=== PATIENT | female | born 1945 | race Caucasian/White ===

== ENCOUNTER 2017-12-05 05:31 | Inpatient (IN) | payer OTHER ==
[2017-11-23 13:41] LABS: HEMATOCRIT 41.4 % (37.0-47.0); MCH 28.7 pg (26.0-34.0); MCHC 33.7 g/dL (28.0-37.0); RBC 4.88 mil/uL (4.20-5.00); RDW 14.6 % (10.5-14.5); WBC 5.1 thou/uL (4.0-11.0)
[2017-11-23 13:42] LABS: URINE BILIRUBIN NEGATIVE (Negative); URINE BLOOD NEGATIVE (Negative); URINE CLARITY CLEAR; URINE COLOR YELLOW; URINE GLUCOSE-RANDOM* NEGATIVE (Negative); URINE KETONES NEGATIVE (Negative); URINE LEUKOCYTES-REFLEX NEGATIVE (Negative); URINE NITRITE-REFLEX NEGATIVE (Negative); URINE PROTEIN (DIPSTICK) NEGATIVE (Negative)
[2017-11-23 13:48] LABS: ALBUMIN 3.8 g/dL (3.4-5.0); CREATININE 0.7 mg/dL (0.6-1.0); POTASSIUM 3.5 mmol/L (3.5-5.1)
[2017-11-23 13:53] LABS: PROTIME 9.6 Seconds (9.3-11.4)
[~2017-12-05] VITALS: Ht 160 cm; Wt 76.7 kg
[2017-12-05] VITALS (7 sets, daily range): BP systolic 96–144; BP diastolic 62–95
--- NOTE | ~2017-12-05 | O ---
[facility] [place] [address] OPERATIVE REPORT Name: SACHA PAVON Room #: 450-P [facility] IN M.R.#: [id number] Admission: 12/05/17 Attend Phys: George Bills MD Discharge: 12/06/17 Date of : 47 Report #: [id number] THIS REPORT FOR: //name// CC: KARELY CHOI Physician staff George Bills DATE OF SERVICE: 12/05/2017 PREOPERATIVE DIAGNOSIS: Left knee osteoarthritis. POSTOPERATIVE DIAGNOSIS: Left knee osteoarthritis. PROCEDURE: Left total knee arthroplasty with Navio assistance. SURGEON: George Bills MD LIBRARY CIRCULATION ASSISTANT: Vianca Padron PA-C. INDICATIONS FOR ASSISTANCE: Throughout the case, extensive retraction and manipulation of the knee was required. This was afforded to me by my medical lab assistant. ANESTHESIA: LMA with an adductor canal block. IMPLANTS: Nicolas and Nephew size 5 narrow cobalt chrome Legion posterior stabilized femur, a size 3 tibia, a size 9 polyethylene and a size 32 patella. TOURNIQUET TIME: 59 minutes. ESTIMATED BLOOD LOSS: 25 mL. COMPLICATIONS: None. SPECIMENS: None. CONDITION UPON LEAVING THE OPERATING ROOM: Stable. INDICATION FOR PROCEDURE: The patient is a 71-year-old female with left knee osteoarthritis. She had failed conservative measures for this and after discussion with her, she elected for left total knee arthroplasty. DESCRIPTION OF PROCEDURE: Risks, benefits, alternatives, complications were discussed in detail with the patient including but not limited to risk of anesthesia, risk of damage to nerves, arteries and blood vessels, risk for infection and bleeding, risk for continued knee pain, need for reoperation. Informed consent was obtained from the patient. The left knee was appropriately [address] [address] OPERATIVE REPORT Name: SACHA PAVON Room #: 450-P DIS IN M.R.#: [id number] Admission: 12/05/17 Attend Phys: George Bills MD Discharge: 12/06/17 Date of : 47 Report #: [id number] marked in the preoperative holding area. IV Ancef was given for preoperative antibiotics. She was brought to the operating room and placed in the supine position on operating room table. LMA anesthesia was induced without complication. Tourniquet was placed on the left thigh. Left lower extremity was prepped and draped in normal sterile fashion. Timeout was performed properly identifying the patient and procedure as well as the instrumentation and implants. All in the operating room were in agreement. Left lower extremity was exsanguinated, tourniquet was inflated. Tourniquet time was 59 minutes. Standard midline approach to the knee was made with a 10 blade through the skin. Dissection was taken down sharply to the fascia and deep flaps were developed medially and laterally. Fresh 10 blade was used to make a medial parapatellar arthrotomy and the knee was inspected. There was severe medial compartment and moderate patellofemoral osteoarthritis and mild lateral compartment disease. The reference pins were then placed into the femur and the tibia for the Navio computerized system. ACL and PCL were removed sharply. The knee was then mapped digitally using the Navio system and the intraoperative plan was made. The femur was sized as a 5 and tibia as a 3 and after carefully reviewing the plan, we proceeded with distal femoral cut using the Navio bur. After this, a size 5, 4-in-1 cutting block was placed and anterior, posterior and chamfer cuts were made in the femur. Knee was flexed and tibia was subluxed anteriorly. Tibial resection guide was then pinned in place using the Navio and tibial resection was made. Tibia was sized, found to be a size 3. A size 3 tibial trial was placed and punched. A size 5 femoral trial was placed and box cut was made and a size 9 polyethylene trial was placed. Knee was taken through range of motion, found to be stable, found to have good balance in flexion and extension both medially and laterally, both manually as well as digitally using the Navio system. After this, 9 mm was taken off the posterior surface of the patella and a size 32 patellar trial button was placed. Knee was taken through range of motion, found to be stable, found to have good patellar tracking. Trial components were removed. Bony ends were thoroughly irrigated with normal saline. A final size 3 tibia, size 5 Legion narrow cobalt chrome femur and a size 32 patella were cemented in place using standard cementation techniques. While the cement cured, a periarticular injection consisting of morphine, ropivacaine, epinephrine and Toradol was placed around the knee joint. After the cement cured, the tourniquet was deflated. Hemostasis was obtained with Bovie cautery. Final size 9 polyethylene was placed. A gram of vancomycin was placed deep in the joint. The fascia was closed with 0 Vicryl, skin was closed with 2-0 Vicryl, 3-0 Monocryl. Dermabond and a DOROTHY dressing was applied. The patient tolerated this procedure well and went to the recovery room under the care of Anesthesia postoperatively. <ELECTRONICALLY SIGNED> By: George Bills MD 12/08/17 0741 1519 1556 George Bills MD /nt
[~2017-12-05 05:31] MED LIST: CLARITIN10 MG PO; LEXAPRO 10 MG T10 M1 PO; LUMIGAN5 ML OPHTHALMIC; MINERAL PO; MIRALAX17 GM PO; OMEPRAZOLE40 MG PO; TYLENOL EXTRA500 MG PO
[2017-12-06] VITALS: BP 98/64
[2017-12-06 04:08] VITALS: BP 101/63
[2017-12-06 05:35] LABS: HEMATOCRIT 33.8 % (37.0-47.0); HEMOGLOBIN 11.4 gm/dL (12.0-15.0); MCH 28.7 pg (26.0-34.0); MCHC 33.7 g/dL (28.0-37.0); MCV 85.2 fL (80.0-100.0); RBC 3.97 mil/uL (4.20-5.00); RDW 14.1 % (10.5-14.5); WBC 9.8 thou/uL (4.0-11.0)
[2017-12-06 07:35] VITALS: BP 98/64
[2017-12-06 15:11] VITALS: BP 98/64
[2017-12-06 15:36] VITALS: BP 98/64
== END 2017-12-06 16:00 | disposition home or self-care (01) | DRG 470 ==
LOC: PRE → 4W 05:41 → TBA 05:41 → PRE 07:53 → 4W 16:01
PROVIDERS: Orthopaedic Surgery
PROC: 0SRD0J9 Replacement of Left Knee Joint with Synthetic Substitute, Cemented, Open Approach (ICD-10-PCS; principal; 2017-12-05)
DX: M17.12 Unilateral primary osteoarthritis, left knee (principal)
CPT/HCPCS: 10047; 50010; 50101; 50415; 50954; 51130; 51225; 51771; 53000; 53078; 53364; 54118; 56527; 56528; 57095; 57103; 57109; 57110; 57113; 57127; 62110; 62900; 64039; 70005

== ENCOUNTER 2018-04-05 21:17 | Inpatient (IN) | payer OTHER ==
[~2018-04-05] VITALS: Ht 160 cm; Wt 79.3 kg
--- NOTE | ~2018-04-05 | O ---
[facility] [place] [address] OPERATIVE REPORT Name: SACHA PAVON Room #: 428-P [facility] IN M.R.#: [id number] Admission: 04/05/18 Attend Phys: Artemio Francisco MD Discharge: 04/08/18 Date of : 47 Report #: [id number] THIS REPORT FOR: //name// CC: Artemio Francisco [facility] physician/PCP DATE OF SERVICE: 04/05/2018 PREOPERATIVE DIAGNOSIS: Right femoral neck fracture. POSTOPERATIVE DIAGNOSIS: Right femoral neck fracture. PROCEDURE: Right total hip arthroplasty with cemented femoral stem. SURGEON: George Bills MD ANESTHESIA: General endotracheal. IMPLANTS: Nicolas [employer] Nephew size 13 Synergy high offset Synergy cemented stem, a size 52 R3 acetabular cup with a size 36 -3 cobalt chrome head. ESTIMATED BLOOD LOSS: 100 mL COMPLICATIONS: None. SPECIMENS: None. CONDITION UPON LEAVING THE OPERATING ROOM: Stable. INDICATIONS FOR PROCEDURE: The patient is a 72-year-old female who fell and sustained a right valgus impacted femoral neck fracture. She is about 4 months out from a total knee arthroplasty from which she did well. After discussion with her and her family, they elected for treatment with a right total hip arthroplasty. DESCRIPTION OF PROCEDURE: Risks, benefits, alternatives, complications were discussed in detail with the patient including, but not limited to, risk of anesthesia, risk of damage to nerves, arteries, blood vessels, risk for infection, bleeding, risk for continued hip pain, leg length discrepancy, instability and need for reoperation. Informed consent was obtained from the patient. Right hip was appropriately marked in the preoperative holding area. IV Ancef was given for preoperative antibiotics. She was brought to the operating room and placed in the supine position on the operating room table. General endotracheal anesthesia was induced without complications. She was placed in the left lateral decubitus position with the right hip uppermost. Right hip and lower extremity were prepped and draped in normal sterile fashion. [address] [address] OPERATIVE REPORT Name: LIBRADOSOMMERSACHA Room #: 428-P [facility] IN ..#: [id number] Admission: 04/05/18 Attend Phys: Artemio Francisco MD Discharge: 04/08/18 Date of : 47 Report #: [id number] Timeout was performed properly identifying the patient and procedure as well as the instrumentation and implants. All in the operating room were in agreement. Standard posterior approach to the hip was made with 10 blade through the skin. Dissection was taken down to the fascia with Bovie cautery and Leal elevator was used to clean the fascia. Fresh 10 blade was used to make a fascial incision. This was taken proximally and distally with curved Dominguez scissor. Charnley retractor was placed. Trochanteric bursa was taken down with Bovie cautery. Piriformis tendon was identified, tagged and taken down with Bovie. Short external rotators were also taken down with Bovie cautery. Capsulotomy was made and capsule ends were tagged for later repair. There was an obvious femoral neck fracture and the hip was dislocated and the femoral head was removed. A cleanout cut of the femoral neck was made with the oscillating saw. Deep acetabular retractors were placed and the labrum was removed sharply. Pulvinar was removed with Bovie cautery. The acetabulum was then sequentially reamed up to a size 52 at which point there was excellent bleeding cancellous bone. This was trialed with a size 51 cup and found to have a good fit. A final size 52 R3 acetabular cup was placed. One acetabular screw was placed for backup fixation. A polyethylene liner for 36 head was placed. Attention was then turned to the femur. This was reamed and broached up to a size 13 at which point a size 13 broach was stable. This trialed with a high offset neck and a 36+0 head. Hip was reduced, taken through range of motion, found to be stable, found to have equal leg lengths. Hip was dislocated. The broach was removed and a final size 13 high offset Synergy cemented stem was then cemented in place using standard cementation techniques. After the cement cured, this was trialed with a 36+0 and then a 36-3 head. The leg lengths were more equal with a -3 with good stability. Hip was dislocated and a final size 36 -3 cobalt chrome head was placed. Hip was reduced, taken through range of motion, found to be stable, found to have equal leg lengths. The joint was thoroughly irrigated with normal saline. Periarticular injection consisting of morphine, ropivacaine, epinephrine and Toradol was placed around the hip joint capsule. A gram of vancomycin was placed deep in the joint. The capsule and piriformis were repaired with 0 FiberWire. Fascia was closed with 0 Vicryl, skin was closed with 2-0 Vicryl, 3-0 Monocryl. Dermabond and a DOROTHY dressing was applied. The patient tolerated this procedure well and went to the recovery room under the care of anesthesia postoperatively. <ELECTRONICALLY SIGNED> By: George Bills MD 04/12/18 1653 1602 1656 George Bills MD /nt
--- NOTE | ~2018-04-05 | EKG ---
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
[2018-04-05 21:41] VITALS: BP 141/84
[2018-04-05] MEDS ORDERED: ASPIR 8181 MG PO (21:49)
[2018-04-05 22:04] LABS: ABSOLUTE NEUTROPHILS 5.5 thou/uL (1.4-8.2); BASOPHILS 0.8 % (0.0-2.0); EOSINOPHILS 1.3 % (0.0-3.0); HEMATOCRIT 40.2 % (37.0-47.0); HEMOGLOBIN 13.3 gm/dL (12.0-15.0); LYMPHOCYTES 9.3 % (24.0-44.0); MCH 26.4 pg (26.0-34.0); MCHC 33.2 g/dL (28.0-37.0); MCV 79.6 fL (80.0-100.0); PLATELET COUNT 126 thou/uL (150-400); POLYS 79.6 % (36.0-66.0); RBC 5.05 mil/uL (4.20-5.00); RDW 15.5 % (10.5-14.5); WBC 6.9 thou/uL (4.0-11.0)
[2018-04-05 22:14] LABS: ANION GAP 8 mmol/L (7-16); BUN 14 mg/dL (7-18); CALCIUM 9.3 mg/dL (8.5-10.1); CHLORIDE 107 mmol/L (98-107); CO2 26 mmol/L (21-32); CREATININE 0.7 mg/dL (0.6-1.0); GLUCOSE 115 mg/dL (74-106); POTASSIUM 3.5 mmol/L (3.5-5.1); SODIUM 141 mmol/L (136-145)
[2018-04-05 22:21] LABS: ALBUMIN 3.7 g/dL (3.4-5.0); SGOT 27 U/L (15-37); SGPT 19 U/L (30-65); TOTAL BILIRUBIN 1.3 mg/dL (<0.1-1.0); TOTAL PROTEIN 6.8 g/dL (6.4-8.2); TROPONIN-I <0.06 ng/mL (<0.06)
[2018-04-05 22:26] LABS: APTT 25.9 Seconds (24.5-32.8); PROTIME 10.1 Seconds (9.3-11.4)
[2018-04-05 22:42] VITALS: BP 136/82
[2018-04-05 22:55] VITALS: BP 136/82
[2018-04-05 23:15] VITALS: BP 130/64
[2018-04-06 06:16] VITALS: BP 108/67
[2018-04-06 08:15] VITALS: BP 112/67
[2018-04-06 20:00] VITALS: BP 117/65
[2018-04-07 05:00] VITALS: BP 121/67
[2018-04-07 08:40] VITALS: BP 149/71
[2018-04-07 17:24] VITALS: BP 115/63
[2018-04-07 19:29] VITALS: BP 103/60
[2018-04-08 05:15] VITALS: BP 97/61
[2018-04-08 05:56] LABS: HEMATOCRIT 33.5 % (37.0-47.0); MCH 26.6 pg (26.0-34.0); MCHC 33.5 g/dL (28.0-37.0); MCV 79.2 fL (80.0-100.0); RBC 4.23 mil/uL (4.20-5.00); RDW 15.4 % (10.5-14.5)
[2018-04-08 06:04] LABS: HEMOGLOBIN 11.2 gm/dL (12.0-15.0)
[2018-04-08 07:24] VITALS: BP 115/71
[2018-04-08 08:53] VITALS: BP 115/71
[2018-04-08 11:45] VITALS: BP 115/71
[2018-04-08 13:37] VITALS: BP 115/71
[2018-04-08 14:09] VITALS: BP 115/71
== END 2018-04-08 13:45 | disposition home or self-care (01) | DRG 469 ==
LOC: ER 21:17 → 4E 22:56 → ER 22:56 → EROBS 23:04 → 4E 23:04
PROVIDERS: Emergency Medicine; Orthopaedic Surgery
PROC: 0SR9019 Replacement of Right Hip Joint with Metal Synthetic Substitute, Cemented, Open Approach (ICD-10-PCS; principal; 2018-04-05)
DX: S72.001A Fracture of unspecified part of neck of right femur, initial encounter for closed fracture (principal); E43 Unspecified severe protein-calorie malnutrition; K21.9 Gastro-esophageal reflux disease without esophagitis; Z96.652 Presence of left artificial knee joint; K59.00 Constipation, unspecified; F32.9 Major depressive disorder, single episode, unspecified; D64.9 Anemia, unspecified; M81.0 Age-related osteoporosis without current pathological fracture; G47.00 Insomnia, unspecified; F41.9 Anxiety disorder, unspecified; Z98.42 Cataract extraction status, left eye; Z98.41 Cataract extraction status, right eye; Z90.49 Acquired absence of other specified parts of digestive tract; Z90.710 Acquired absence of both cervix and uterus; Z91.040 Latex allergy status; Z87.891 Personal history of nicotine dependence; W18.39XA Other fall on same level, initial encounter; Y93.89 Activity, other specified; Y92.481 Parking lot as the place of occurrence of the external cause; Y99.8 Other external cause status; Z47.89 Encounter for other orthopedic aftercare; Z79.82 Long term (current) use of aspirin; Z79.899 Other long term (current) drug therapy
CPT/HCPCS: 10084; 50010; 50101; 50382; 50414; 51057; 51130; 51225; 51226; 53000; 53078; 53367; 54118; 56524; 56527; 56528; 56530; 57095; 57103; 62110; 62900; 70005

== ENCOUNTER → 2018-09-04 | Outpatient (CLI) | payer OTHER ==
[~2018-09-04] VITALS: Ht 160 cm; Wt 78.9 kg
[~2018-09-04] MED LIST changes: +ALLEGRA ALLERG180 MG PO; +ASPIR 8181 MG PO; +CALCIUM 600 +1 EAC1 PO; +FOSAMAX 70 MG T70 MG PO
[2018-09-04 07:43] VITALS: BP 124/82
--- NOTE | 2018-09-04 09:20 | TEE ---
[facility] [address] [place] [address] TRANSESOPHAGEAL ECHOCARDIOGRAM Name: SACHA PAVON Room #: [facility]#: [id number] ������������� Admission: 09/04/18 ������������� Attend Phys: Jesse Sagastume, Discharge: ��� ������������� ��� Date of : 47 Date of Service: 09/04/18 0919 �� Report #: [id number] �������� ��������������������������������������������[id number] THIS REPORT FOR: //name// APPROVED REPORT Study performed: 09/04/2018 07:52:45 EXAM: Comprehensive 2D, Doppler, and color-flow Echocardiogram Patient Location: Out-Patient Status: routine BSA: 1.82 HR: 68 bpm BP: 128/84 mmHg Rhythm: NSR Other Information Study Quality: Good Indications Asses right heart for abnormality. Pre Op pacemaker. Procedure After obtaining informed consent, patient underwent transesophageal echo in the [employer]. Type of Sedation : Conscious Sedation Sedation was administered by Tess Moreno RN. Sedation was achieved intravenously with: Versed (3) Fentanyl (50) Transesophageal probe was inserted and advanced into esophagus without difficulty by Jesse Sagastume MD. The CLAUDIA was performed without complications. Throughout the procedure, the blood pressure, pulse oximetry, cardiac rhythm, and rate were monitored. The patient tolerated the procedure without adverse effects. Recovery from conscious sedation was uneventful and vital signs were stable. Left Ventricle The left ventricle is normal size. There is normal LV segmental wall motion. There is normal left ventricular wall thickness. Left ventricular systolic function is normal. LVEF is 55-60%. Right Ventricle The right ventricle is normal size. The right ventricular systolic [facility] [address] [place] [address] TRANSESOPHAGEAL ECHOCARDIOGRAM Name: NIGELBARRIESACHA Room #: REG [facility] Sudha#: [id number] ������������� Admission: 09/04/18 ������������� Attend Phys: Jesse Sagastume, Discharge: ��� ������������� ��� Date of : 47 Date of Service: 09/04/18 0919 �� Report #: [id number] �������� ��������������������������������������������[id number] function is normal. Atria The left atrium size is normal. No thrombus is visualized in the left atrium or appendage. No shunting noted by contrast bubble injection. Atrial septal aneurysm present The right atrium size is normal. Aortic Valve The aortic valve is normal in structure. No aortic regurgitation is present. There is no aortic valvular stenosis. Mitral Valve The mitral valve is normal in structure. No mitral regurgitation. No evidence of mitral valve stenosis. Tricuspid Valve Thicken anterior/posterior tricuspid leaflets with mild prolapse, probable myxomatous changes. Normal septal leaflet. Trace tricuspid regurgitation. Pulmonic Valve The pulmonary valve is normal in structure. Trace pulmonic regurgitation. Great Vessels The aortic root is normal in size. The ascending aorta is normal in size. IVC is normal in size and collapses >50% with inspiration. Pericardium There is no pericardial effusion. <Conclusion> Left ventricular systolic function is normal. There is normal LV segmental wall motion. LVEF is 55-60%. No shunting noted by contrast bubble injection. Atrial septal aneurysm present No thrombus is visualized in the left atrium or appendage. The aortic valve is normal in structure. No aortic regurgitation or stenosis. The mitral valve is normal in structure. No mitral regurgitation Thickened anterior/posterior tricuspid leaflets with mild prolapse, probable myxomatous changes. Normal septal leaflet. Trace tricuspid [facility] [address] [place] [address] TRANSESOPHAGEAL ECHOCARDIOGRAM Name: SACHA PAVON Room #: [facility]#: [id number] ������������� Admission: 09/04/18 ������������� Attend Phys: Jesse Sagastume, Discharge: ��� ������������� ��� Date of : 47 Date of Service: 09/04/18918 �� Report #: [id number] �������� ��������������������������������������������[id number] regurgitation. Normal thoracic aorta. There is no pericardial effusion. ��������������������������������������������� <ELECTRONICALLY SIGNED> ���������������������������������������� By: Jesse Sagastume MD, [facility] ��������������������������������������������� 09/04/18918 8 8 Jesse Sagastume MD, [facility] /INF
--- NOTE | 2018-09-04 15:03 | NUR ---
PT RECOVERED POST CLAUDIA THIS AM WITH NO C/O. VSS. PLAN TO RETURN ON TUE FOR PPM. DISCHARGE INSTRUCTIONS GIVEN TO PT AND . BOTH VOICE UNDERSTANDING.
== END | disposition home or self-care (01) ==
LOC: CATH 06:40
DX: I07.1 Rheumatic tricuspid insufficiency (principal); I49.9 Cardiac arrhythmia, unspecified; I25.2 Old myocardial infarction; K21.9 Gastro-esophageal reflux disease without esophagitis; Z98.41 Cataract extraction status, right eye; Z98.42 Cataract extraction status, left eye; Z90.89 Acquired absence of other organs; Z90.710 Acquired absence of both cervix and uterus; Z98.890 Other specified postprocedural states; Z96.1 Presence of intraocular lens; Z96.652 Presence of left artificial knee joint; Z91.040 Latex allergy status; Z79.899 Other long term (current) drug therapy

== ENCOUNTER 2018-09-06 06:38 | Inpatient (IN) | payer OTHER ==
[~2018-09-06] VITALS: Ht 160 cm; Wt 78.9 kg
[2018-09-06] VITALS (12 sets, daily range): BP systolic 117–144; BP diastolic 69–86
[~2018-09-06 06:38] MED LIST changes: -CALCIUM 600 +1 EAC1 PO
[2018-09-06 07:14] LABS: ABSOLUTE NEUTROPHILS 2.1 thou/uL (1.4-8.2); BASOPHILS 2.1 % (0.0-2.0); EOSINOPHILS 3.6 % (0.0-3.0); HEMATOCRIT 39.3 % (37.0-47.0); LYMPHOCYTES 26.6 % (24.0-44.0); MCH 27.1 pg (26.0-34.0); MCV 81.9 fL (80.0-100.0); MONOCYTES 11.5 % (1.0-8.0); PLATELET COUNT 151 thou/uL (150-400); POLYS 56.2 % (36.0-66.0); RDW 16.8 % (10.5-14.5); WBC 3.8 thou/uL (4.0-11.0)
[2018-09-06 07:22] LABS: CALCIUM 8.5 mg/dL (8.5-10.1); CREATININE 0.7 mg/dL (0.6-1.0); POTASSIUM 3.4 mmol/L (3.5-5.1)
[2018-09-06 07:24] LABS: APTT 26.1 Seconds (24.5-32.8); PROTIME 10.1 Seconds (9.3-11.4)
[2018-09-06 07:27] LABS: ALBUMIN 3.6 g/dL (3.4-5.0); TOTAL BILIRUBIN 0.9 mg/dL (<0.1-1.0); TOTAL PROTEIN 6.3 g/dL (6.4-8.2)
[2018-09-06] MEDS ORDERED: CALCIUM 600 +1 EAC1 PO (07:32)
[2018-09-06 15:53] LABS: URINE BILIRUBIN NEGATIVE (Negative); URINE BLOOD NEGATIVE (Negative); URINE CLARITY CLEAR; URINE COLOR YELLOW; URINE GLUCOSE-RANDOM* NEGATIVE (Negative); URINE KETONES NEGATIVE (Negative); URINE LEUKOCYTES TRACE (Negative); URINE NITRITE NEGATIVE (Negative); URINE PROTEIN (DIPSTICK) NEGATIVE (Negative); URINE UROBILINOGEN 0.2 E.U./dl (0.2-1.0)
--- NOTE | 2018-09-06 19:33 | NUR ---
PATIENT ADMITED FROM OR. ADMISSION HX AND ASSESSMENT COMPLETED. VSS. RECEIVED PRN PAIN MED FOR RIGHT SHOULDER PAIN. PACEMAKER INCISION C/D/I WITH BRUISING NOTED. NO HEMATOMA NOTED. WILL CONTINUE TO MONITOR.
[2018-09-07] VITALS (11 sets, daily range): BP systolic 104–156; BP diastolic 66–80
--- NOTE | 2018-09-07 08:48 | NUR ---
ASSUME CARE 1900. ADEQUATE REST NOTED. PT DENIES ANY PAIN AND DISCOMFORT. ASSESSMETN CHARTED. PROGRESSING WELL WITH POC. SR ON MONITOR. PACER SITE CDI/MILDY RAISED AND PINK. UP TO BEDSIDE COMMODE WITH AQSSISTANCE. PROGRESSING WITH POC. PLAN IS POSSIBLE DISCHARGE TODAY. WILL CONTINUE TO MONITOR AND FOLLOW WITH POC
--- NOTE | 2018-09-07 18:31 | NUR ---
ASSESSMENT CHARTED. VSS. HAD PACEMAKER LEAD REPLACEMENT THIS AM. PACEMAKER SURGICAL INCISION C/D/I NO HEMATOMA NOTED. PRN PAIN MED GIVEN WITH PARTIAL RELIEF. WILL CONTINUE TO MONITOR.
--- NOTE | 2018-09-08 04:58 | NUR ---
ASSUMED PT CARE AT 1900. VSS. PT A&0X4. I PUT PT ON STRICT BEDREST OVERNIGHT IN ADDITION TO HER L ARM IMMOBILIZER JUST TO MAKE SURE NO LEAD DISPLACEMENT OCCURS WITH HER NEWLY IMPLANTED PACEMAKER. PT COMPLAINED OF GAS PAINS, DENIED NEED FOR MIRALAX, SAYS SHE IS UNABLE TO HAVE A BM WHEN SHE IS NOT IN HER OWN HOME. LAST BM WAS ON THE . PT IS STABLE, RESTED WELL ALL NIGHT. NO COMPLAINTS OF PAIN, L CHEST SITE REMAINS CDI WITH SOME ERYTHEMA. WILL CONTINUE TO MONITOR PER POC.
[2018-09-08 05:09] VITALS: BP 128/70
[2018-09-08 07:20] VITALS: BP 133/75
[2018-09-08] MEDS ORDERED: IRON325 PO (07:56)
[2018-09-08] MEDS ORDERED: COLACE100 MG PO (07:56)
[2018-09-08 10:08] VITALS: BP 133/75
--- NOTE | 2018-09-08 10:32 | NUR ---
ASSESSMENT CHARTED. PT ALERT AND ORIENTED. VSS. PACEMAKER INCISION C/D/I. REDNESS NOTED BUT NO HEMATOMA NOTED. DENIED HAVING PAIN. SEEN BY DR. HOLLIDAY. ORDERS GIVEN TO DISCHARGE PT TO HOME. DISCHARGE INSTRUCTIONS GIVEN TO PT. PT VERBERLIZED UNDERSTANDING.
--- NOTE | 2018-09-12 16:45 | D ---
[facility] [place] [address] DISCHARGE SUMMARY Name: ASCHA PAVON Room #: 205-P [facility] IN M.R.#: [id number] Admission: 09/07/18 ������������������ Attend Phys: Kavon Abernathy MD Discharge: 09/08/18 ������������������ Date of : 47 Report #: [id number] THIS REPORT FOR: //name// CC: Ted Abernathy DATE OF SERVICE: 09/08/2018 DISCHARGE DIAGNOSES: 1. Syncope. 2. Left bundle-branch block. 3. Third-degree heart block. PROCEDURES PERFORMED: Pacemaker implantation. HOSPITAL COURSE: The patient is a 72-year-old female with history of left bundle-branch block, syncope and evidence of heart block on a recent conveyor monitor. She was brought in for dual chamber pacemaker implantation. She underwent successful dual-chamber pacemaker implantation. On postop day #1, her device was checked and her RV threshold was noted to be elevated. Chest x-ray showed that both the atrial and ventricular lead had essentially lost all their slack. This may have been due to tortuous anatomy at the [facility] versus the patient moving her arm excessively. As such, the patient was taken back for repositioning of the atrial and ventricular leads with the implantation of a Tyrx antibiotic pouch. There were no procedure-related complications. On the day of discharge, repeat chest x-ray showed stable lead positions and normal device function. Her incision was healing nicely. The patient denied any chest pain, shortness of breath, PND or orthopnea. On exam, heart was regular rate and rhythm. Lungs were clear to auscultation bilaterally. Incision was healing nicely with some mild bruising, but no hematoma. As such, she was deemed stable for discharge home. Discharge instructions were reviewed and she had a followup appointment scheduled. ��������������������������������������������� <ELECTRONICALLY SIGNED> ���������������������������������������� By: Kavon Abernathy MD ��������������������������������������������� 09/12/18 1645 0946 0306 Kavon Abernathy MD /nt
--- NOTE | 2018-09-12 16:48 | P ---
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 ANESTHESIA: The patient underwent MAC anesthesia with no anesthesia related complications. However, prior to induction of anesthesia, she did have a transient episode of complete heart block lasting approximately 6 seconds with associated near syncope. PROCEDURE: The patient underwent informed consent. We discussed the details of the procedure including the risks, which include but not limited to bleeding, infection, vascular damage, cardiac perforation and pneumothorax. She understood these risks and was willing to proceed. The patient was brought to the EP laboratory in a fasting and unsedated state and prepped and draped in a sterile fashion. She received IV antibiotics prior to initiation of the procedure and underwent a venogram showing patency of left axillary vein. Next, lidocaine was injected below the level of the left clavicle. Incision was made. A pocket was created over the prepectoral fascia. Access was obtained twice in the left axillary vein using the extrathoracic approach with sheaths positioned using the modified Seldinger technique. Next, a lead was positioned into the right ventricular basal septum. Another lead was placed in the right atrial appendage. Both leads showed adequate pacing and sensing thresholds. The leads were sutured to the prepectoral fascia, connected to the device and the pocket was irrigated with vancomycin. Pocket was closed in 2 layers using 2-0 for the deep layer and 3-0 for the mid layer. Surgical glue was placed to the outer skin layer. The patient awoke neurologically and hemodynamically intact. No complications. No significant bleeding. The implanted pacemaker was a [employer], model #GT7789, serial #[id number]. Atrial lead was a [employer] model #2088TC, 46 cm, serial #[id number]. The RV lead was a [employer], model #2088TC, 52 cm, serial #[id number]. The atrial lead demonstrated a P-wave of 3.5 millivolts, pacing impedance of 600 ohms, pacing threshold 0.75 volts at 0.4 milliseconds. The RV lead demonstrated an R-wave of 6 millivolts, pacing impedance of 610 ohms, pacing threshold 0.5 volts at 0.4 milliseconds. The device was programmed to a DDD 60-[address] [address] PROCEDURE REPORT Name: SACHA PAVON Room #: [facility] IN ..#: [id number] Admission: 09/07/18 ������������������ Attend Phys: Kavon Abernathy MD Discharge: 09/08/18 ������������������ Date of : 47 Report #: [id number] CONCLUSIONS: 1. Successful dual-chamber pacemaker implantation. 2. Satisfactory atrial and ventricular pacing and sensing thresholds. ��������������������������������������������� <ELECTRONICALLY SIGNED> ���������������������������������������� By: Kavon Abernathy MD ��������������������������������������������� 09/12/18 1648 1014 2148 Kavon Abernathy MD /nt
== END 2018-09-08 10:36 | disposition home or self-care (01) | DRG 243 ==
LOC: CATH 06:38 → 2N 10:58 → CATH 13:49 → 2N 09-07 09:09 → ENTRNSPT 09-08 10:24 → EDTRNSPTSTS 09-08 10:26 → 2N 09-08 10:36
PROVIDERS: ADMIT Internal Medicine Cardiovascular Disease
PROC: 02HK3JZ Insertion of Pacemaker Lead into Right Ventricle, Percutaneous Approach (ICD-10-PCS; principal; 2018-09-06)
PROC: 02H63JZ Insertion of Pacemaker Lead into Right Atrium, Percutaneous Approach (ICD-10-PCS; principal; 2018-09-06)
PROC: B51N1ZZ Fluoroscopy of Left Upper Extremity Veins using Low Osmolar Contrast (ICD-10-PCS; principal; 2018-09-06)
PROC: 0JH606Z Insertion of Pacemaker, Dual Chamber into Chest Subcutaneous Tissue and Fascia, Open Approach (ICD-10-PCS; principal; 2018-09-06)
PROC: 02WA3MZ Revision of Cardiac Lead in Heart, Percutaneous Approach (ICD-10-PCS; 2018-09-07)
DX: I44.2 Atrioventricular block, complete (principal); T82.120A Displacement of cardiac electrode, initial encounter; I44.7 Left bundle-branch block, unspecified; Y83.8 Other surgical procedures as the cause of abnormal reaction of the patient, or of later complication, without mention of misadventure at the time of the procedure; Y92.238 Other place in hospital as the place of occurrence of the external cause; Z91.040 Latex allergy status
CPT/HCPCS: 10081; 62110; 62900; 70005

== ENCOUNTER 2019-06-12 07:05 | Inpatient (IN) | payer OTHER ==
[2019-06-05 13:37] LABS: HEMATOCRIT 42.9 % (37.0-47.0); HEMOGLOBIN 13.9 gm/dL (12.0-15.0); MCH 27.2 pg (26.0-34.0); MCHC 32.4 g/dL (28.0-37.0); RBC 5.11 mil/uL (4.20-5.00); RDW 14.2 % (10.5-14.5)
[2019-06-05 13:47] LABS: URINE BILIRUBIN NEGATIVE (Negative); URINE BLOOD NEGATIVE (Negative); URINE CLARITY CLEAR; URINE COLOR YELLOW; URINE GLUCOSE-RANDOM* NEGATIVE (Negative); URINE KETONES NEGATIVE (Negative); URINE LEUKOCYTES-REFLEX TRACE (Negative); URINE NITRITE-REFLEX NEGATIVE (Negative); URINE PROTEIN (DIPSTICK) NEGATIVE (Negative); URINE UROBILINOGEN 0.2 E.U./dl (0.2-1.0)
[2019-06-05 14:20] LABS: ALBUMIN 3.9 g/dL (3.4-5.0); CALCIUM 8.6 mg/dL (8.5-10.1); CREATININE 0.7 mg/dL (0.6-1.0); POTASSIUM 3.3 mmol/L (3.5-5.1)
[~2019-06-12] VITALS: Ht 160 cm; Wt 82.1 kg
[~2019-06-12 07:05] MED LIST changes: +ADVIL200 M3 PO; +CALCIUM 600 +1 EAC1 PO; +CITRACAL + D E1 EACH PO; +COLACE100 MG PO; +IRON325 PO; +LEXAPRO5 MG PO; +STOOL SOFTENER1 EAC2 PO; +VITAMIN D325 MC3 PO
[2019-06-12 08:14] VITALS: BP 116/74
[2019-06-12 15:43] VITALS: BP 124/77
--- NOTE | 2019-06-12 16:53 | NUR ---
Pt came up from recovery approx 1500. Dressing on right hip c/d/i. Pain controlled. Pt worked with physical therapy. IVF infusing. TAY hose and SCDs in place. Polar pack in place. Pt has pacemaker. Call light within reach. Fall precautions in place. Will continue to monitor.
[2019-06-12 19:25] VITALS: BP 103/61
[2019-06-13 03:58] VITALS: BP 101/64
--- NOTE | 2019-06-13 04:07 | NUR ---
PT C/O PAIN ON HER HIP,MANAGED WITH MED.UP TO THE BSC WITH ASSIST X1.DRSG ON R HIP C/D/I.DOROTHY DRSG,SCD AND TAY HOSE AND POLAR PACK IN PLACE.PT CONT ON IVF AND IV ABX ORDERED.PT SLEEPING ON HER BED AT THIS TIME.FALL PRECAUTIONS IN PLACE,CALL LIGHT WITHIN REACH.
[2019-06-13 06:54] LABS: HEMATOCRIT 33.2 % (37.0-47.0); HEMOGLOBIN 10.8 gm/dL (12.0-15.0); MCH 27.5 pg (26.0-34.0); MCHC 32.6 g/dL (28.0-37.0); MCV 84.3 fL (80.0-100.0); RBC 3.94 mil/uL (4.20-5.00); RDW 14.1 % (10.5-14.5); WBC 8.3 thou/uL (4.0-11.0)
[2019-06-13 08:10] VITALS: BP 115/76
[2019-06-13] MEDS ORDERED: ASPIR 8181 MG PO (13:15)
[2019-06-13] MEDS ORDERED: NEURONTIN 300300 M1 PO (13:15)
[2019-06-13 13:50] VITALS: BP 115/76
[2019-06-13 14:30] VITALS: BP 115/76
--- NOTE | 2019-06-13 14:37 | NUR ---
Case opened to follow for dc planning needs. Pt is s/p TKR and progressing postop. Possible dc home tomorrow with plans for outpt therapy in her hometown [place] The pt has a rwalker for home use and her spouse will be bringing it up later. Her spouse is a vet and her dtr is an RN and they will be able to assist her at dc. She has two steps to enter her home. No cm interventions indicated at this time. Will remain available should dc needs arise.
--- NOTE | 2019-06-13 14:38 | NUR ---
Assumed care of pt at 0700. Pt a&ox4. Dressing c/d/i. Pain controlled with prn pain meds. Polar maura in place. TAY hosolivia and SCDs in place. Pt will discharge home. Call light within reach. Fall precautions in place.
--- NOTE | 2019-06-20 12:28 | O ---
[facility] [place] [address] OPERATIVE REPORT Name: SACHA PAVON Room #: 444-P [facility] IN M.R.#: [id number] Admission: 06/12/19 Attend Phys: George Bills MD Discharge: 06/13/19 Date of : 47 Report #: [id number] THIS REPORT FOR: cc: Ted Acevedo,Ted Wade,George Silva MD ~ CC: Ted Bills DATE OF SERVICE: 06/12/2019 PREOPERATIVE DIAGNOSIS: Right knee osteoarthritis. POSTOPERATIVE DIAGNOSIS: Right knee osteoarthritis. PROCEDURE: Right total knee arthroplasty using Navio robotic administrative support assistant. SURGEON: George Bills MD. PERFUMER: Vianca Padron PA-C. INDICATIONS FOR PERFUMER: Throughout the case, extensive retraction and manipulation of the knee was required. This was afforded to me by my administrative support assistant. ANESTHESIA: LMA with an adductor canal block. IMPLANTS: [employer]hew size 4, Legion cobalt chrome posterior stabilized femur, size 3 tibia, size 32 patella and a size 10 polyethylene. TOURNIQUET TIME: 54 minutes. ESTIMATED BLOOD LOSS: 25 mL. COMPLICATIONS: None. SPECIMENS: None. CONDITION UPON LEAVING THE OPERATING ROOM: Stable. INDICATIONS FOR PROCEDURE: The patient is a 73-year-old female with right knee osteoarthritis. She had failed conservative measures for this and after discussion with her, she elected for right total knee arthroplasty. DESCRIPTION OF PROCEDURE: Risks, benefits, alternatives, complications were discussed in detail with the patient including but not limited to risk of anesthesia, risk of damage to nerves, arteries, blood vessels, risk for [facility] [address] [place] [address] OPERATIVE REPORT Name: SACHA PAVON Room #: 444-P DIS IN M.R.#: [id number] Admission: 06/12/19 Attend Phys: George Bills MD Discharge: 06/13/19 Date of : 47 Report #: [id number] infection, bleeding, risk for continued knee pain, need for reoperation. Informed consent was obtained from the patient. Right knee was appropriately marked in the preoperative holding area. IV Ancef was given for preoperative antibiotics. Adductor canal block was placed by Anesthesia. She was brought to the operating room and placed in supine position on operating room table. LMA anesthesia was induced without complication. Tourniquet was placed on the right thigh. Right lower extremity was prepped and draped in normal sterile fashion. Timeout was performed properly identifying the patient and procedure as well as the instrumentation and implants. All in the operating room were in agreement. Right lower extremity was exsanguinated, tourniquet was inflated. Tourniquet time was 54 minutes. Standard midline approach to the knee was made with 10 blade through the skin. Dissection was taken down sharply to the fascia and deep flaps were developed medially and laterally. Fresh 10 blade was used to make a medial parapatellar arthrotomy and the knee was inspected. There was severe tricompartment osteoarthritis. ACL and PCL were removed sharply. Reference pins were placed in the femur and the tibia. The knee was then digitally mapped using the Evolve IP robotic system. Intraoperative plan was made and we sized the size 4 femur with a size 3 tibia and 11 spacer. After acceptance of the intraoperative plan, the distal femoral cut was made with a Navio bur. The size 4, 4-in-1 cutting block was placed. Anterior, posterior and chamfer cuts were made. Attention was then turned to the tibia. The remainder of the menisci removed with Bovie cautery. Tibial resection guide was pinned in place using the Navio for placement and tibial resection was made. Flexion and extension gaps were then checked and found to have good balance in flexion and extension both medially and laterally. Tibia was sized, found to be a size 3. Size 3 tibial trial was placed, pinned and punched. Size 4 femoral trial was placed and the box cut was made. This was then trialled with a size 9 and then a size 10 polyethylene. The size 10 polyethylene demonstrated the best fit through range of motion with a millimeter laxity medial and lateral throughout full range of motion of the knee. After this, 9 mm was resected from the posterior surface of the patella and a size 32 patellar trial button was placed. Knee was taken through range of motion, found to have good patellar tracking. After this, trial components were removed. Bony ends were thoroughly irrigated with normal saline. Final size 3 tibia, size 4 femur and a size 32 patella were cemented in place using standard cementation techniques. While the cement cured, a periarticular injection consisting of morphine, ropivacaine, epinephrine and Toradol was placed around the knee joint capsule. After the cement cured, tourniquet was deflated. Hemostasis was obtained with Bovie cautery. A final size 10 polyethylene was placed. A gram of vancomycin was placed deep in the joint. Fascia was closed with 0 Vicryl, skin was closed with 2-0 Vicryl, 3-0 Monocryl. Dermabond and a DOROTHY dressing was applied. The [address] [address] OPERATIVE REPORT Name: SACHA PAVON Room #: 444-P DIS IN M.R.#: [id number] Admission: 06/12/19 Attend Phys: George Bills MD Discharge: 06/13/19 Date of : 47 Report #: [id number] patient tolerated this procedure well and went to recovery room under care of anesthesia postoperatively. <ELECTRONICALLY SIGNED> By: George Bills MD 06/20/19 1228 [id number] George Bills MD /nt
== END 2019-06-13 14:48 | disposition home or self-care (01) | DRG 470 ==
LOC: TBA 07:05 → 4S 07:05 → PRE 09:35 → TBA 11:02 → 4S 15:26 → TBA 22:39 → ENTRNSPT 06-13 14:30 → EDTRNSPTSTS 06-13 14:39 → 4S 06-13 14:48
PROVIDERS: ADMIT Orthopaedic Surgery
PROC: 0SRC0J9 Replacement of Right Knee Joint with Synthetic Substitute, Cemented, Open Approach (ICD-10-PCS; principal; 2019-06-12)
PROC: 8E0Y0CZ Robotic Assisted Procedure of Lower Extremity, Open Approach (ICD-10-PCS; principal; 2019-06-12)
DX: M17.11 Unilateral primary osteoarthritis, right knee (principal); K59.00 Constipation, unspecified; F41.9 Anxiety disorder, unspecified; G89.29 Other chronic pain; K21.9 Gastro-esophageal reflux disease without esophagitis; Z96.641 Presence of right artificial hip joint; Z96.652 Presence of left artificial knee joint; Z79.899 Other long term (current) drug therapy; Z91.048 Other nonmedicinal substance allergy status; Z95.0 Presence of cardiac pacemaker; Z87.891 Personal history of nicotine dependence
CPT/HCPCS: 10102; 50010; 50101; 50415; 50954; 51130; 51225; 51320; 52001; 52282; 53000; 53078; 53364; 54118; 56527; 56528; 57095; 57103; 57110; 57127; 57180; 62110; 62900; 64039; 64043; 70005

== ENCOUNTER → 2019-12-20 | Outpatient (CLI) | payer OTHER ==
[~2019-12-20] MED LIST changes: +NEURONTIN 300300 M1 PO
== END ==
LOC: SJCVC 13:32
PROVIDERS: ATTEND Internal Medicine Cardiovascular Disease
DX: R94.31 Abnormal electrocardiogram [ECG] [EKG] (principal); I44.7 Left bundle-branch block, unspecified; Z95.0 Presence of cardiac pacemaker; Z79.899 Other long term (current) drug therapy; Z87.891 Personal history of nicotine dependence

== ENCOUNTER → 2020-12-03 | Outpatient (CLI) | payer OTHER | LOC: SJCVCIMAG 07:49 | PROVIDERS: ATTEND Internal Medicine Cardiovascular Disease | DX: R94.31 Abnormal electrocardiogram [ECG] [EKG] (principal); I44.2 Atrioventricular block, complete; R55 Syncope and collapse; I44.7 Left bundle-branch block, unspecified; K21.9 Gastro-esophageal reflux disease without esophagitis; F32.9 Major depressive disorder, single episode, unspecified; Z87.891 Personal history of nicotine dependence; Z79.899 Other long term (current) drug therapy; Z88.8 Allergy status to other drugs, medicaments and biological substances; Z91.040 Latex allergy status; Z95.0 Presence of cardiac pacemaker ==